=== PATIENT | female | born 1965 | race Native Hawaiian/Other Pacific Islander ===

== ENCOUNTER 2017-08-06 07:41 | Day surgery (SDC) | payer OTHER ==
[2017-08-06] MEDS ORDERED: LACTATED RINGERS 1,000 ML IV ONE (07:55)
[2017-08-06 08:28] LABS: HCG UR QUAL NEGATIVE
[2017-08-06] MEDS ORDERED: fentaNYL 100 MCG/2 ML VIAL IVP ONE (08:36)
[2017-08-06] MEDS ORDERED: MIDAZOLAM 2 MG/2 ML VIAL IVP ONE (08:36)
[2017-08-06 09:38] VITALS: BP 101/55
== END 2017-08-06 07:42 | disposition home or self-care (01) ==
LOC: SDS 07:41
PROVIDERS: ATTEND Surgery
PROC: 0DBN8ZX Excision of Sigmoid Colon, Via Natural or Artificial Opening Endoscopic, Diagnostic (ICD-10-PCS; principal; 2017-08-06 08:45)
DX: Z12.11 Encounter for screening for malignant neoplasm of colon (principal); D12.5 Benign neoplasm of sigmoid colon; K64.8 Other hemorrhoids
CPT/HCPCS: 45380; 81025; J7120

== ENCOUNTER 2018-10-20 12:38 | Day surgery (SDC) | payer OTHER ==
[2018-10-20] MEDS ORDERED: LACTATED RINGERS 1,000 ML IV ONE (12:55)
[2018-10-20] MEDS ORDERED: fentaNYL 100 MCG/2 ML VIAL IVP ONE (15:07)
[2018-10-20] MEDS ORDERED: MIDAZOLAM 2 MG/2 ML VIAL IVP ONE (15:07)
[2018-10-20 15:37] VITALS: BP 104/66
== END 2018-10-20 12:39 | disposition home or self-care (01) ==
LOC: SDS 12:38
PROVIDERS: ATTEND Internal Medicine
PROC: 0DB68ZX Excision of Stomach, Via Natural or Artificial Opening Endoscopic, Diagnostic (ICD-10-PCS; principal; 2018-10-20 14:00)
DX: K29.70 Gastritis, unspecified, without bleeding (principal)
CPT/HCPCS: 43239; J7120